=== PATIENT | female | born 1995 | race Caucasian/White ===

== ENCOUNTER 2019-04-15 14:37 | Outpatient (CLI) | payer BC ==
--- NOTE | 2019-04-15 15:31 | ULT ---
US Pelvic Transvag W Doppler History: Ovarian cyst Comparison: None. Findings: Real-time grayscale, color, and spectral analysis of the pelvis was performed transabdomina l and transvaginal approach. The uterus is normal measures 7.1 x 4.7 x 3.8 cm. Endometrial thickness is 3 mm. Right ovary measures 3.6 x 2.1 x 2.3 cm and the left ovary measures 1.8 x 3.1 x 1.8 cm. Simple cysts of both ovaries. Adequate vascular flow to both ovaries. No significant free fluid in the pelvis. No uterine myometrial mass. Impression: Normal pelvic ultrasound.
== END 2019-04-15 14:38 | disposition home or self-care (01) ==
LOC: BICULT 14:37
DX: N83.209 Unspecified ovarian cyst, unspecified side (principal)
CPT/HCPCS: 76856